=== PATIENT | female | born 1975 | race Caucasian/White ===

== ENCOUNTER 2018-10-02 07:59 | Emergency (ER) | payer BC ==
[2018-10-02 08:16] VITALS: BP 170/103
--- NOTE | 2018-10-02 08:28 | EDM.PDOC ---
ED HPI GENERAL MEDICAL PROBLEM - General Chief Complaint: Syncope Stated Complaint: FELT LIKE SHE WAS GOING TO PASS OUT Time Seen by Provider: 10/02/18 08:18 - History of Present Illness INITIAL COMMENTS - FREE TEXT/NARRATIVE: 43-year-old female presents emergency room after having what sounds like a near syncopal event. The patient was getting ready for work this morning and she became lightheaded week she did not fall. The patient has had problems with vertigo in the past this is completely different it was very sudden onset. She felt perfectly fine before this started she denies any recent illness. Patient recently had some blood work on the clinic and within the last year has had her thyroid checked. The patient has had some palpitations since the event this morning but did not have any palpitations during the event. She feels very anxious at this time. She denies any illicit drug use or heavy alcohol use. She has no history of anemias. At this time she feels anxious no other complaints - Related Data Allergies Allergy/AdvReac Type Severity Reaction Status Date / Time No Known Allergies Allergy Verified 10/02/18 08:16 Home Meds: Home Meds Oral Control 1 tab PO DAILY 02/26/15 [History] Past Medical History - Past Health History Medical/Surgical History: Denies Medical/Surgical History ED ROS GENERAL - Review of Systems Review Of Systems: See Below Constitutional: Reports: Weakness (This morning's event otherwise unremarkable fevers chills) HEENT: Reports: No Symptoms Respiratory: Reports: No Symptoms Cardiovascular: Reports: No Symptoms Endocrine: Reports: No Symptoms GI/Abdominal: Reports: No Symptoms : Reports: No Symptoms Musculoskeletal: Reports: No Symptoms Skin: Reports: No Symptoms Neurological: Reports: No Symptoms Psychiatric: Reports: Anxiety. Denies: No Symptoms Hematologic/Lymphatic: Reports: No Symptoms - Physical Exam Exam: See Below Exam Limited By: No Limitations General Appearance: Alert, Other (She is somewhat anxious. Her blood pressure is elevated with a systolic of 170) Eye Exam: Bilateral Eye: EOMI, Normal Inspection, PERRL Ears: Normal External Exam, Normal Canal, Hearing Grossly Normal, Normal TMs Throat/Mouth: Normal Inspection, Normal Lips, Normal Teeth, Normal Gums, Normal Oropharynx, Normal Voice, No Airway Compromise Head Exam: Atraumatic, Normocephalic Neck: Normal Inspection, Supple, Non-Tender, Full Range of Motion. No: Lymphadenopathy (L), Lymphadenopathy (R) Respiratory/Chest: No Respiratory Distress, Lungs Clear, Normal Breath Sounds, No Accessory Muscle Use, Chest Non-Tender Cardiovascular: Normal Peripheral Pulses, Regular Rate, Rhythm, No Edema GI/Abdominal: Normal Bowel Sounds, Soft, Non-Tender Neuro Exam (Abbreviated): Alert, Oriented, Normal Cognition, Other (Regular Sutro grossly intact all muscle groups the upper ureters are equal and appropriate patient seems to have normal ambulatory skills. Deep tendon reflexes are equal and appropriate at brachial radialis cerebellar testing is within normal limits) Back Exam: Normal Inspection. No: CVA Tenderness (L), CVA Tenderness (R) Extremities: Normal Inspection, No Pedal Edema Psychiatric: Anxious Skin Exam: Warm, Dry, Intact EKG INTERPRETATION EKG Date: 10/02/18 Rhythm: NSR [place]: Normal P-Wave: Present QRS: Normal ST-T: Normal QT: Normal EKG Interpretation Comments: normal Course - Vital Signs Last Recorded V/S: Last Vital Signs Temp 37.3 C 10/02/18 08:14 Pulse 74 10/02/18 08:14 Resp 16 10/02/18 08:14 BP 170/103 H 10/02/18 08:14 Pulse Ox 99 10/02/18 08:14 - Orders/Labs/Meds Orders: Active Orders 24 hr Category Date Time Status EKG Documentation Completion [RC] ASDIRECTED Care 10/02/18 08:33 Active Holter Monitor 24 Hours [RC] .PRN Care 10/02/18 10:13 Active EKG 12 Lead [EK] Stat Ther 10/02/18 08:32 Ordered Labs: Laboratory Tests 10/02/18 10/02/18 Range/Units 08:50 08:50 Sodium 139 (136-145) mEq/L Potassium 3.7 (3.5-5.1) mEq/L Chloride 103 (98-107) mEq/L Carbon Dioxide 26 (21-32) mEq/L Anion Gap 13.7 (5-15) BUN 15 (7-18) mg/dL Creatinine 0.9 (0.55-1.02) mg/dL Est Cr Clr Drug Dosing 65.06 mL/min Estimated GFR (MDRD) > 60 (>60) mL/min BUN/Creatinine Ratio 16.7 (14-18) Glucose 102 (74-106) mg/dL Calcium 8.9 (8.5-10.1) mg/dL Magnesium 2.1 (1.8-2.4) mg/dl HCG, Qual Negative (NEGATIVE) Meds: Medications Discontinued Medications Generic Name Dose Route Start Last Admin Trade Name Davie PRN Reason Stop Dose Admin Lorazepam 0.5 mg 10/02/18 08:32 10/02/18 08:52 Ativan PO 10/02/18 08:33 0.5 mg ONETIME ONE Administration - Re-Assessments/Exams Free Text/Narrative Re-Assessment/Exam: 10/02/18 10:29 Basic metabolic panel magnesium and test unrevealing the patient feels much better after half milligram of Ativan. We will get a Holter monitor on her and discharge her home to rest. Departure - Departure Time of Disposition: 10:29 Disposition: Home, Self-Care 01 Clinical Impression: Near syncope - Discharge Information Referrals: Payal Trevino MD [Primary Care Provider] - Forms: ED Department Discharge Additional Instructions: Return to the emergency room with any questions problems worsening symptoms. Go home and get some rest. Don't drive for 12-24 hours as you did receive some sedating medication here in the emergency department. Follow-up with your regular provider a couple of days after you're done with a Holter monitor. - My Orders Last 24 Hours: My Active Orders 10/02/18 08:32 EKG 12 Lead [EK] Stat 10/02/18 08:33 EKG Documentation Completion [RC] ASDIRECTED 10/02/18 10:13 Holter Monitor 24 Hours [RC] .PRN - Assessment/Plan Last 24 Hours: My Active Orders 10/02/18 08:32 EKG 12 Lead [EK] Stat 10/02/18 08:33 EKG Documentation Completion [RC] ASDIRECTED 10/02/18 10:13 Holter Monitor 24 Hours [RC] .PRN
[2018-10-02] MEDS ORDERED: LORazepam 0.5 MG Tab PO ONE (08:32)
== END 2018-10-02 10:58 | disposition home or self-care (01) ==
LOC: JD.ED 07:59
DX: R55 Syncope and collapse (principal); Z79.3 Long term (current) use of hormonal contraceptives
CPT/HCPCS: 36415; 80048; 83735; 84703; 93005; 93225; 93226; 99284; A9270; 93010

== ENCOUNTER 2018-10-08 04:58 | Emergency (ER) | payer BC ==
[2018-10-08 05:08] VITALS: BP 132/90
[2018-10-08] MEDS ORDERED: Ondansetron 4 MG Tab.DIS PO ONE (05:41)
--- NOTE | 2018-10-08 05:50 | EDM.PDOC ---
ED HPI GENERAL MEDICAL PROBLEM - General Chief Complaint: Neurological Problem Stated Complaint: dizzy nausea Time Seen by Provider: 10/08/18 05:15 Source of Information: Reports: Patient, RN Notes Reviewed History Limitations: Reports: No Limitations - History of Present Illness INITIAL COMMENTS - FREE TEXT/NARRATIVE: The patient states that she woke up about an hour ago with vertigo and nausea. Her symptoms are worse if she moves, particularly if she leans forward. No tenderness, decreased hearing, or ear pain. The patient states that she has had similar symptoms the past, and her physician previously referred her to PT for treatment, however, she did not go. She states that she has not previously been evaluated by ENT. Medical records indicate that the patient was seen in this ED this past 10/02/2017, but the patient states that that was for lightheadedness, not vertigo. The patient states that she took 2 tablets of an [id number] anti-motion sickness medicine this morning. The patient's PCP is Payal Trevino. Headache Pain Score (Numeric/FACES): 5 - Related Data Allergies Allergy/AdvReac Type Severity Reaction Status Date / Time No Known Allergies Allergy Verified 10/08/18 05:09 Home Meds: Home Meds Oral Control 1 tab PO DAILY 02/26/15 [History] Ondansetron [Zofran ODT] 1 tab PO Q8H PRN #10 tab.dis 10/08/18 [Rx] Past Medical History HEENT History: Reports: Other (See Below) (BPPV) Endocrine/Metabolic History: Reports: Obesity/BMI 30+ - Past Surgical History HEENT Surgical History: Reports: Oral Surgery (wisdom teeth extraction) Social & Family History - Family History Family Medical History: Noncontributory - Tobacco Use Smoking Status *Q: Former Smoker Years of Tobacco use: 20 Packs/Tins Daily: 0.5 Month/Year Tobacco Last Used: Quit Feb 2015 - Caffeine Use Caffeine Use: Reports: Coffee - Alcohol Use Alcohol Use History: Yes Alcohol Use Frequency: Socially - Recreational Drug Use Recreational Drug Use: No - Living Situation & Occupation Living situation: Reports: , with Spouse, with Family (Son) Occupation: Employed (manufacturing plant technician) ED ROS GENERAL - Review of Systems Review Of Systems: ROS reveals no pertinent complaints other than HPI. ED EXAM, DIZZINESS - Physical Exam Exam: See Below Exam Limited By: No Limitations General Appearance: Alert, WD/WN, No Apparent Distress Eye Exam: Bilateral Eye: EOMI, Normal Inspection, PERRL Nystagmus: worsens with head to L, reproducible, reversible Ears: Normal External Exam, Normal Canal, Hearing Grossly Normal, Normal TMs Nose: Normal Inspection, Normal Mucosa, No Blood Throat/Mouth: Normal Inspection, Normal Lips, Normal Teeth, Normal Gums, Normal Oropharynx, Normal Voice, No Airway Compromise Head Exam: Atraumatic, Normocephalic Vertigo: worsens with head to L, reproducible, reversible Neck: Normal Inspection, Supple, Non-Tender, Full Range of Motion Respiratory/Chest: No Respiratory Distress, Lungs Clear, Normal Breath Sounds, No Accessory Muscle Use Cardiovascular: Normal Peripheral Pulses, Regular Rate, Rhythm, No Gallop, No JVD, No Murmur, No Rub GI/Abdominal: Normal Bowel Sounds, Soft, Non-Tender, No Organomegaly, No Distention, No Abnormal Bruit, No Mass, Other (Obese) (Female) Exam: Deferred Rectal (Female) Exam: Deferred Neurological: Alert, Normal Dorsiflexion, CN II-XII Intact, Normal Plantar Flexion, No Motor/Sensory Deficits, Oriented x 3, Other (No induction of symptoms or nystagmus with Wyandotte-Hallpike maneuver to the right, however, both symptoms and nystagmus were induced with [place]-Hallpike maneuver to the left. The fast component was down and to the right.) Back Exam: Normal Inspection, Full Range of Motion, NT Extremities: Normal Inspection, Normal Range of Motion, No Pedal Edema, Normal Capillary Refill Psychiatric: Anxious Skin Exam: Warm, Dry, Intact, Normal Color, No Rash Course - Vital Signs Last Recorded V/S: Last Vital Signs Temp 36.8 C 10/08/18 05:06 Pulse 105 H 10/08/18 05:06 Resp 20 10/08/18 05:06 BP 132/90 10/08/18 05:06 Pulse Ox 100 10/08/18 05:06 - Orders/Labs/Meds Meds: Medications Discontinued Medications Generic Name Dose Route Start Last Admin Trade Name Freq PRN Reason Stop Dose Admin Ondansetron HCl 4 mg 10/08/18 05:41 10/08/18 05:50 Zofran Odt PO 10/08/18 05:42 4 mg ONETIME ONE Administration - Re-Assessments/Exams Free Text/Narrative Re-Assessment/Exam: 10/08/18 05:41 The patient is suffering from BPPV, with the affected semicircular canal on the left and, based on her Jermaine-Hallpike maneuver results, I suspect more likely the anterior canal over the posterior canal. She states that she has already been taking ifnr-[id number]-lmocvbo motion sickness medicine, which I have no objection to her continuing. She will be given a dose of Zofran ODT here, and I will send a prescription to the [facility]. She will be discharged home with a referral to ENT, as well as a note for work. The patient states that she drove herself here; I informed her that she will need to have someone come and pick her up. Departure - Departure Time of Disposition: 05:50 Disposition: Home, Self-Care 01 Condition: Fair Clinical Impression: BPPV (benign paroxysmal positional vertigo) - Discharge Information *PRESCRIPTION DRUG MONITORING PROGRAM REVIEWED*: Not Applicable *COPY OF PRESCRIPTION DRUG MONITORING REPORT IN PATIENT GAYLA: Not Applicable Prescriptions: Ondansetron [Zofran ODT] 1 tab PO Q8H PRN #10 tab.dis PRN Reason: Nausea/Vomiting Instructions: Vertigo, [id number] Referrals: Payal Trevino MD [Primary Care Provider] - Rui Sorenson MD [Ordering Only Provider] - Forms: ED Department Discharge, ED Return to Work/School Form Additional Instructions: You were seen in the emergency room for the sensation of the room spinning when you move, with associated nausea. Based on your history and physical examination, you are suffering from benign paroxysmal positional vertigo (BPPV) = blockage of one of the small semicircular canals in your in your inner ear. In your case, the affected canal is on the left, most likely the anterior canal, possibly the posterior canal. You may continue to take rtle-tmv-sbejzwm anti-motion medicine to help with your symptoms. You have been started on the anti-nausea medicine Zofran. A prescription for Zofran has been sent to the [facility], located in the [place] store. Dissolve 1 tablet on your tongue up to every 8 hours, as needed for nausea/vomiting. As discussed, you CANNOT DRIVE while you have this condition. A note for work has been provided to you. Follow-up with the ENT Dr. Rui Sorenson, in [place], at the next available appointment, for definitive diagnosis and treatment. If any other problems, please do not hesitate to return to the ER.
== END 2018-10-08 06:01 | disposition home or self-care (01) ==
LOC: JD.ED 04:58
DX: H81.12 Benign paroxysmal vertigo, left ear (principal); Z79.3 Long term (current) use of hormonal contraceptives; Z87.891 Personal history of nicotine dependence
CPT/HCPCS: 99283; A9270

== ENCOUNTER 2020-04-05 06:54 | Day surgery (SDC) | payer OTHER ==
[~2020-04-05 06:54] MED LIST: Lidocaine 1% 4 ML ONE; Lidocaine 1%/Sod Bicarbonate in NS 8.4% 1 ML Syringe IDERM PRN; Ondansetron 4 MG/2 ML SDV ONE; Rocuronium 50 MG/5 ML Vial ONE; Sodium Chloride 0.9% 10 ML Syringe FLUSH PRN
[2020-04-05] MEDS ORDERED: Midazolam 1 MG/ML 2 ML SDV ONE (06:55)
[2020-04-05] MEDS ORDERED: fentaNYL 250 MCG/5 ML SDV ONE (06:55)
[2020-04-05] MEDS ORDERED: Propofol 200 MG/20 ML SDV ONE (06:55)
[2020-04-05] MEDS ORDERED: Dexamethasone 4 MG/ML 5 ML MDV ONE (06:55)
[2020-04-05] MEDS ORDERED: ceFAZolin 1 GM Vial ONE (06:55)
[2020-04-05] MEDS ORDERED: Bupivacaine 0.5% 30 ML SDV ONE (07:05)
[2020-04-05] MEDS: Lactated Ringers 1,000 ML IV SCH ×3 (07:20→13:20)
--- NOTE | 2020-04-05 07:26 | PCM.PREANE ---
Preanesthetic Assessment - Procedure Proposed Procedure: lap assisted vag hyst - Anesthesia/Transfusion/Family Hx Anesthesia History: Prior Anesthesia Without Reaction Family History of Anesthesia Reaction: No Transfusion History: No Prior Transfusion(s) - Review of Systems General: No Symptoms Pulmonary: No Symptoms Cardiovascular: No Symptoms Gastrointestinal: No Symptoms Neurological: No Symptoms Other: Reports: None - Physical Assessment NPO Status Date: 04/04/20 NPO Status Time: 23:00 Vital Signs: 137/92 73 98% 16 98.9 Height: 5 ft 2 in Weight: 77.111 kg ASA Class: 2 Mental Status: Alert & Oriented x3 Airway Class: Mallampati = 1 Dentition: Reports: Normal Dentition Thyro-Mental Finger Breadths: 3 Mouth Opening Finger Breadths: 3 ROM/Head Extension: Full Lungs: Clear to Auscultation, Normal Respiratory Effort Cardiovascular: Regular Rate, Regular Rhythm - Lab Values: Laboratory Last Values SARS Virus RNA (PCR) Negative (NEGATIVE) 04/04/20 12:30 - Allergies Allergies/Adverse Reactions: Allergies Allergy/AdvReac Type Severity Reaction Status Date / Time No Known Allergies Allergy Verified 04/04/20 13:13 - Blood Blood Available: No - Acknowledgements Anesthesia Type Planned: General Anesthesia Pt an Appropriate Candidate for the Planned Anesthesia: Yes Alternatives and Risks of Anesthesia Discussed w Pt/Guardian: Yes Pt/Guardian Understands and Agrees with Anesthesia Plan: Yes PreAnesthesia Questionnaire - Past Health History Medical/Surgical History: Denies Medical/Surgical History HEENT History: Reports: None Cardiovascular History: Reports: None Respiratory History: Reports: None Gastrointestinal History: Reports: None, GERD (prn) Genitourinary History: Reports: None DISPATCHER SERVICE History: Reports: , Other (See Below) Other OB/BYN History: fibroid uterus, abnormal uterine bleeding, Musculoskeletal History: Reports: None Neurological History: Reports: Other (See Below) Other Neuro History: abnormal MRI, dizziness Psychiatric History: Reports: None Endocrine/Metabolic History: Reports: Obesity/BMI 30+ Hematologic History: Reports: None Immunologic History: Reports: None Oncologic (Cancer) History: Reports: None Dermatologic History: Reports: None - Past Surgical History Head Surgeries/Procedures: Reports: None HEENT Surgical History: Reports: Oral Surgery Cardiovascular Surgical History: Reports: None Respiratory Surgical History: Reports: None GI Surgical History: Reports: None Female Surgical History: Reports: None Male Surgical History: Reports: None Endocrine Surgical History: Reports: None Neurological Surgical History: Reports: None Musculoskeletal Surgical History: Reports: None Oncologic Surgical History: Reports: None Dermatological Surgical History: Reports: None - SUBSTANCE USE Smoking Status *Q: Former Smoker Tobacco Use Within Last Twelve Months: No Second Hand Smoke Exposure: No Days Per Week of Alcohol Use: 2 Number of Drinks Per Day: 2 Total Drinks Per Week: 4 Recreational Drug Use History: No - HOME MEDS Home Medications: Home Meds Ibuprofen 600 mg PO Q4H PRN 04/04/20 [History] Multivitamin 1 tab PO DAILY 04/04/20 [History] oxyCODONE HCl/Acetaminophen [Percocet 5-325 mg Tablet] 1 - 2 tab PO Q6H PRN 04/04/20 [History] - CURRENT (IN HOUSE) MEDS Current Meds: Current Medications Lactated Ringer's (Ringers, Lactated) 1,000 mls @ 125 mls/hr IV ASDIRECTED ELHAM Stop: 04/05/20 23:00 Lidocaine/Sodium Bicarbonate (Buffered Lidocaine 1% In Ns 8.4%) 0.25 ml IDERM ONETIME PRN PRN Reason: Prior to IV Start Stop: 04/05/20 18:00 Sodium Chloride (Saline Flush) 10 ml FLUSH ASDIRECTED PRN PRN Reason: Keep Vein Open Stop: 04/05/20 18:00 Discontinued Medications Bupivacaine HCl (Marcaine 0.5%) Confirm Administered Dose 30 ml .ROUTE .STK-MED ONE Stop: 04/05/20 07:06 Cefazolin Sodium (Ancef) Confirm Administered Dose 2 gm .ROUTE .STK-MED ONE Stop: 04/05/20 06:56 Dexamethasone (Dexamethasone) Confirm Administered Dose 20 mg .ROUTE .STK-MED O NE Stop: 04/05/20 06:56 Fentanyl (Sublimaze) Confirm Administered Dose 250 mcg .ROUTE .STK-MED ONE Stop: 04/05/20 06:56 Lidocaine HCl (Xylocaine-Mpf 1%) Confirm Administered Dose 4 mls @ as directed .ROUTE .STK-MED ONE Stop: 04/05/20 06:55 Lidocaine/Epinephrine (Xylocaine 1% With Epinephrine 1:100,000) Confirm Administered Dose 20 ml .ROUTE .STK-MED ONE Stop: 04/05/20 07:06 Midazolam HCl (Versed 1 Mg/Ml) Confirm Administered Dose 2 mg .ROUTE .STK-MED ONE Stop: 04/05/20 06:56 Ondansetron HCl (Zofran) Confirm Administered Dose 4 mg .ROUTE .STK-MED ONE Stop: 04/05/20 06:55 Propofol (Diprivan 20 Ml) Confirm Administered Dose 200 mg .ROUTE .STK-MED ONE Stop: 04/05/20 06:56 Rocuronium [place] (Zemuron) Confirm Administered Dose 50 mg .ROUTE .STK-MED ONE Stop: 04/05/20 06:55
--- NOTE | 2020-04-05 07:44 | PCM.OPNOTE ---
- General Post-Op/Procedure Note Date of Surgery/Procedure: 04/05/20 Operative Procedure(s): Laparoscopic assisted vaginal hysterectomy with bilateral salpingectomy Findings: Intraabdominal evaluation with normal appearance of the ovaries and fallopian tubes bilaterally . Uterus is enlarged/bulbous consistent with known fibroid. Pre Op Diagnosis: Abnormal uterine bleeding. Fibroid uterus Post-Op Diagnosis: Same Anesthesia Technique: General ET Tube Primary Surgeon: Samantha Wallace Secondary Surgeon: Gwen Louis Anesthesia Provider: Fadumo Nunez Reason Electrical Troubleshooter Was Necessary: Speed/safety of procedure. BMI of patient Pathology: Cervix, uterus, and fallopian tubes sent to pathology Fluid Replacement, Intraop: 1,900 Output, Urine Amount: 125 EBL in mLs: 500 Complications: None Condition: Good Free Text/Narrative:: The risks, benefits, indications, potential complications, and alternatives were explained to the patient and informed consent obtained. The patient was taken to the Operating Room where general anesthesia was induced without complication. The patient was placed in dorsal lithotomy with Ross Stirrups and an exam under anesthesia performed. The patient was then prepped and draped in the usual sterile fashion. A sterile bivalve speculum was placed into the vagina and the anterior lip of the cervix was grasped with a single tooth tenaculum and a AquaBling uterine manipulator was placed to allow uterine manipulation throughout the procedure. The speculum and single tooth tenaculum were removed from the vagina. A Day catheter was placed in sterile fashion. Attention was then turned to the patients abdomen where a Veress needle was carefully introduced into the peritoneal cavity while tenting the abdominal wall. Intraperitoneal placement was confirmed by free flow of saline into the abdomen from a syringe open to gravity and with a low intraabdominal pressure with insufflation of C02 gas on low flow. The gas was increased to high flow and a pneumoperitoneum was obtained with C02 gas to a pressure of 15 mm Hg. A 5 mm skin incision was made in a vertical fashion in the umbilical fold and a 5 mm blunt trocar was inserted into the abdomen with direct visualization of the laparoscope through the clear view trocar lens. 5 mm skin incisions were made in both the left and right lower quadrants approximately 10 cm lateral and 3 cm inferior to the umbilicus. 5 mm blunt trocars were inserted into the abdomen under direct visualization with care to avoid the abdominal wall vasculature. A blunt probe and grasper were inserted through the accessory ports and a survey of the abdomen revealed the findings detailed above. The right fallopian tube was elevated with the blunt graspers at the fimbriated end. The LigaSure was used to grasp, elevate, cauterize and transect the mesosalpinx from the fimbriated end toward the uterus to the level of the round ligament. The fallopian tube was amputated at the cornua and removed through a 5 mm port. The round ligament on the right was then elevated, cauterized, and transected with the Ligasure. Hemostasis was noted. Next, the vesicouterine peritoneum was elevated gently with a blunt grasper and the LigaSure and blunt dissection were used dissect the vesicouterine peritoneum to make a bladder flap. Two more small bites along the right side of the uterus were made with the Ligasure to skeletonize the uterine artery. Hemostasis was noted. The exact same procedure was carried out on the left. The CO2 gas was turned off and the laparoscope was removed. Attention was then turned to the vaginal portion of the procedure. A short weighted speculum was placed in the vagina, and the cervix was grasped with a tenaculum. The cervix was injected circumferentially with 15 mL of 1% lidocaine with dilute epinephrine. The cervix was then circumferentially incised with a scalpel. A Raytec was used to bluntly dissect the cervix circumferentially until an avascular plane was obtained. The posterior cul-de-sac was entered sharply without difficulty. A 0-Vicryl pop-off suture was placed at six o'clock to include the posterior vaginal mucosa and posterior peritoneum. This stitch was tagged with a straight clamp to help with vaginal cuff closure at the end of the case. The short weighted speculum was replaced by the long weighted speculum. The uterosacral ligaments were grasped on either side with the LigaSure, cauterized, and transected. Hemostasis was assured. The bladder was dissected off the pubovesical cervical fascia anteriorly with a sponge and blunt dissection. The anterior cul-de-sac was then entered sharply without difficulty. The cardinal ligaments were then serially clamped on both sides with the LigaSu re, cauterized, and transected. The uterine arteries were then clamped, cauterized, and transected. The fundus and adnexa were confirmed to be free of any further peritoneal attachments and then were pulled out through the vagina. There was slight bleeding noted at right aspect of cuff and along posterior peritoneum. The posterior peritoneum was closed with a 0-Vicryl in a running locked fashion with care taken to also reapproximate right angle. Hemostasis was noted after this intervention. Next the vaginal cuff was closed with two separate running, locked 0 Vicryl sutures started at either apex and run towards the midline. One additional 0 Vicryl pop off placed at right vaginal cuff apex in figure of eight style. Attention was then again turned to the abdomen. All members of the surgical team changed gloves. The laparoscope was again inserted and the abdomen was again insufflated with CO2. The pedicles were again visualized. Irrigation of the pedicles was performed. Adrien seal was placed along the vaginal cuff and dissection pedicles. Hemostasis was confirmed. The patient was taken out of Trendelenberg position. The accessory trocars were removed under direct visualization. The pneumoperitoneum was allowed to escape. The umbilical trocar was removed and lastly the camera was removed from the abdomen under direct visualization to confirm no herniation into the port site. All skin incisions were re-approximated with 4-0 Monocryl and sealed with Dermabond. Hemostasis was noted. A total of 10 cc of 0.25% Marcaine was injected into the subcutaneous tissues surrounding the skin incisions for local anesthesia. All sponge, lap, needle, and instrument counts were correct x 2. The patient tolerated the procedure well and there were no complications.
[2020-04-05] MEDS ORDERED: HYDROmorphone 1 MG/ML Syringe ONE ×2 (08:17→09:02)
[2020-04-05] MEDS ORDERED: fentaNYL 100 MCG/2 ML SDV IVPUSH PRN (08:23)
[2020-04-05] MEDS ORDERED: Ondansetron 4 MG/2 ML SDV IVPUSH PRN (08:23)
[2020-04-05] MEDS ORDERED: HYDROmorphone 0.5 MG/0.5 ML Syringe IVPUSH PRN (08:23)
[2020-04-05] MEDS: Lidocaine 1% with EPINEPHrine 1:100,000 20 ML MDV ONE ×2 (08:28→08:50)
[2020-04-05] MEDS ORDERED: Lactated Ringers 1,000 ML ONE (08:41)
[2020-04-05] MEDS ORDERED: Ketorolac 30 MG/ML SDV ONE (08:59)
--- NOTE | 2020-04-05 10:12 | PCM.POSTAN ---
POST ANESTHESIA ASSESSMENT - MENTAL STATUS Mental Status: Alert, Oriented - VITAL SIGNS Vital Signs: Last Vital Signs Temp 98.9 F 04/05/20 07:10 Pulse 73 04/05/20 07:10 Resp 16 04/05/20 07:10 BP 137/92 H 04/05/20 07:10 Pulse Ox 98 04/05/20 07:10 1006 99% 125/73 101 11 99.0 - RESPIRATORY Respiratory Status: Respiratory Rate WNL, Airway Patent, O2 Saturation Stable, Supplemental Oxygen - CARDIOVASCULAR CV Status: Pulse Rate WNL, Blood Pressure Stable - GASTROINTESTINAL GI Status: No Symptoms - PAIN Pain Score: 0 (doesnt really know) - POST OP HYDRATION Hydration Status: Adequate & Stable
[2020-04-05] MEDS ORDERED: Metoclopramide 10 MG/2 ML SDV IV PRN (12:09)
[2020-04-05] MEDS ORDERED: Haloperidol Lactate 5 MG/ML SDV IVPUSH ONE (12:09)
[2020-04-05] MEDS ORDERED: Promethazine 6.25 MG in Sodium Chloride 0.9% 9 ML IV PRN (12:09)
--- NOTE | 2020-04-05 13:45 | PCM48HPAN ---
Post Anesthesia Note - EVALUATION WITHIN 48HRS OF ANESTHETIC Vital Signs in Normal Range: Yes Patient Participated in Evaluation: Yes Respiratory Function Stable: Yes Airway Patent: Yes Cardiovascular Function Stable: Yes Hydration Status Stable: Yes (increased fluids. dizzy and nauseated when up) Pain Control Satisfactory: Yes Nausea and Vomiting Control Satisfactory: Yes Mental Status Recovered: Yes Vital Signs: Last Vital Signs Temp 97.9 F 04/05/20 10:50 Pulse 80 04/05/20 13:30 Resp 13 04/05/20 13:30 BP 102/59 L 04/05/20 13:30 Pulse Ox 95 04/05/20 13:30
[2020-04-06 10:44] VITALS: BP 130/82; PULSE 91
== END 2020-04-05 15:19 | disposition home or self-care (01) ==
LOC: JD.SDS 06:54
PROVIDERS: ATTEND Obstetrics & Gynecology
DX: N80.0 Endometriosis of uterus (principal); D25.1 Intramural leiomyoma of uterus; D25.2 Subserosal leiomyoma of uterus; D25.0 Submucous leiomyoma of uterus; K21.9 Gastro-esophageal reflux disease without esophagitis; E66.9 Obesity, unspecified; Z87.891 Personal history of nicotine dependence; Z79.899 Other long term (current) drug therapy; Z68.31 Body mass index [BMI] 31.0-31.9, adult; Z01.812 Encounter for preprocedural laboratory examination; Z20.828 Contact with and (suspected) exposure to other viral communicable diseases
CPT/HCPCS: 36415; 58552; 80048; 81025; 85025; 86850; 86900; 86901; 87635; J0690; J1100; J1170; J1885; J2001; J2250; J2405; J2704; J2710; J2765; J3010; J3490; J7120; 00944; U0002